=== PATIENT | female | born 1950 | race Caucasian/White ===

== ENCOUNTER 2018-01-11 11:02 | Inpatient (IN) | payer MEDICARE, BC, OTHER ==
[~2018-01-11] VITALS: Ht 149.9 cm; Wt 49.9 kg
[2018-01-11] MEDS ORDERED: 5 DAY TAPER OF LORAZEPAM -SERENITY PROTOCOL PO PRN (13:00)
[2018-01-11] MEDS ORDERED: IBUPROFEN 600 MG TABLET PO PRN (13:00)
[2018-01-11] MEDS ORDERED: 5 DAY TAPER BUPRENORPHINE -SERENITY PROTOCOL SL PRN (13:00)
[2018-01-11] MEDS ORDERED: DICYCLOMINE HCL 20 MG TABLET PO PRN (13:00)
[2018-01-11] MEDS ORDERED: diphenhydrAMINE 50 MG CAPSULE PO PRN (13:00)
[2018-01-11] MEDS ORDERED: ONDANSETRON ODT 4 MG TAB.RAPDIS SL PRN (13:00)
[2018-01-11] MEDS ORDERED: ONDANSETRON 4 MG/2 ML VIAL IM PRN (13:00)
[2018-01-11] MEDS ORDERED: MAGNESIUM HYDROXIDE 30 ML LIQUID UDC PO PRN (13:00)
[2018-01-11] MEDS ORDERED: LORAZEPAM 2 MG/1 ML VIAL IM PRN (13:00)
[2018-01-11] MEDS ORDERED: MAG HYDROX/AL HYDROX/SIMETH 30 ML LIQUID UDC PO PRN (13:00)
[2018-01-11] MEDS ORDERED: MIRALAX 17 GM POWD.PACK PO PRN (13:00)
[2018-01-11] MEDS ORDERED: LORAZEPAM 1 MG TABLET PO PRN ×2 (13:00)
[2018-01-11] MEDS ORDERED: THIAMINE HCL 200 MG/2 ML VIAL IM ONE (13:00)
[2018-01-11] MEDS ORDERED: LOPERAMIDE HCL 2 MG CAPSULE PO PRN ×2 (13:00)
[2018-01-11] MEDS ORDERED: BUPRENORPHINE HCL 2 MG TAB.SUBL SL PRN (13:00)
[2018-01-11 13:10] LABS: *AMPHETAMINE, URINE NEGATIVE (NEGATIVE); *BARBITURATE, URINE NEGATIVE (NEGATIVE); *CANNABINOID, URINE NEGATIVE (NEGATIVE); *COCCAINE, URINE NEGATIVE (NEGATIVE); *OPIATE, URINE POSITIVE (NEGATIVE); *PHENCYCLIDINE SCREEN,URINE NEGATIVE (NEGATIVE)
--- NOTE | 2018-01-11 13:15 | NUR ---
PRE ASSESSMENT NOTE Patient is 67 year old female admitted for medically supervised from ETOH/Opioids withdrawal. Patient is alert awake oriented x4. Patient is intoxicated able to make good eye contact and answer questions appropriately. Patient is anxious, agitated, restless flushed face. Patient stated PMH of insomnia, HTN, Degenerative disc disease but denies any history of seizure. VITAL SIGNS-B/P-142/72,HR-80, SPO2-98%,RR-17, PAIN -0/10, TEMP-98.4. Patient brought medications from home.
[2018-01-11 13:25] VITALS: BP 142/72
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
[2018-01-11 14:30] LABS: BASOPHILS % (AUTO) 0.9 % (0.0-2.0); EOSINOPHILS % (AUTO) 0.9 % (0.0-7.0); HEMATOCRIT 40.1 % (31.2-41.9); HEMOGLOBIN 13.5 g/dL (10.9-14.3); LYMPHOCYTES # (AUTO) 1.9 K/uL (20.0-40.0); LYMPHOCYTES % (AUTO) 39.2 % (20.5-51.5); MEAN CORPUSCULAR HGB CONC 34 g/dL (32.3-35.6); MEAN CORPUSCULAR VOLUME 100.9 fL (75.5-95.3); MONOCYTES # (AUTO) 0.4 K/uL (2.0-10.0); NEUTROPHILS # (AUTO) 2.4 K/uL (1.8-8.9); PLATELET COUNT (AUTO) 274 K/uL (179-408); RED BLOOD CELL COUNT(AUTO) 3.98 MIL/uL (3.63-4.92); WHITE BLOOD COUNT (AUTO) 4.8 K/uL (3.8-11.8)
[2018-01-11 14:53] LABS: ALANINE AMINOTRANSFERASE 68 U/L (14-59); ALKALINE PHOSPHATASE 108 U/L (50-136); AMYLASE 28 U/L (25-115); ASPARTATE AMINOTRANSFERASE 56 U/L (15-37); BILIRUBIN,TOTAL 0.9 mg/dL (0.2-1.0); CARBON DIOXIDE 26 mmol/L (21-32); CHLORIDE 100 mmol/L (98-107); CREATININE 0.6 mg/dL (0.6-1.3); GLUCOSE 112 mg/dL (74-106); LIPASE 68 U/L (73-393); MAGNESIUM 1.9 mg/dL (1.8-2.4); TOTAL PROTEIN, SERUM 7.1 g/dL (6.4-8.2); UREA NITROGEN, BLOOD 9 mg/dL (7-18)
[2018-01-11 15:00] LABS: ETHANOL < 3 MG/DL (0-0)
[2018-01-11] MEDS ORDERED: TRAZ-214 PO (15:09)
[2018-01-11] MEDS ORDERED: BENA20TA9 PO (15:09)
--- NOTE | 2018-01-11 15:09 | NUR ---
VITAMIN B1 ADMINISTERED Vitamine B1 administered on left deltoid injection site clean and dry no s/s of bleeding no swelling noted.
[2018-01-11 16:00] VITALS: BP 106/62
--- NOTE | 2018-01-11 17:46 | NUR ---
PRN Ativan Pt reports feeling anxious. She appears restless in bed with facial flushing and moist skin. She is taking deep breaths. CIWA score 9. PRN Ativan administered.
[2018-01-11] MEDS ORDERED: BIMA2.5D5 EACHEYE (18:00)
[2018-01-11] MEDS ORDERED: [UNRECOGNIZED DRUG - CODE] TP (18:00)
--- NOTE | 2018-01-11 18:11 | NUR ---
VTE SCORE VTE score 5 MD notified. SCD pumps in place. Educated patient on SCD pumps
--- NOTE | 2018-01-11 18:41 | NUR ---
ATIVAN REASSESSMENT CIWA score noted -7. Per patient Ativan 1mg PO was effective anxiety, tremors, restless decreased. Will cont to monitor.
--- NOTE | 2018-01-11 19:13 | NUR ---
START OF SHIFT Presented patient, 67 year old female, admitted today for Oxycodone and Alcohol withdrawal, and is on ordered PRN medications. 5 day Ativan taper and 3 day Subutex tapers scheduled for tomorrow, on 01/12/2018 at 0900, per MD's order. Upon endorsement, the patient is in her room, lying in the bed, and watching TV. The patient is alert, and oriented x4, cooperative, with clear, soft speech, and steady gait. During the day the patient experienced withdrawal symptoms such as anxiety, agitation, irritability, nervousness, tremors, sweating, restlessness, and fatigue. The most recent COWS=4 at 1600, CIWA=7 at 1841. PRN Ativan 1 mg PO administrated for CIWA=9 at 1745, and was effective, per day shift nurse report. VSWNL. SCD Pump in place as ordered for VTE=5. Encouraged increased oral fluids as tolerated. Encouraged to attending group activities. Safe and calm environment provided. All needs met. Safety measures: Call light within reach, bed locked in lowest position, padded bed rails up x2. The patient endorsed by day shift nurse. Will continue to monitor closely. endorsed by day shift nurse. Will continue to monitor closely. Addendum: 01/11/18 at 2309 by RAFAEL NGUYEN RN Presented patient, 67 year old female, admitted today for Alcohol and Oxycodone withdrawal,
--- NOTE | 2018-01-11 19:13 | NUR ---
END OF SHIFT NOTE Gave report to night nurse, 67 year old female admitted for ETOH/Opioids withdrawal. Patient currently not on any taper but PRN'S available for s/s of withdrawal. Skin intact warm and dry to touch. During shift patient presented with anxiety, agitation, restless,patient was PRN Ativan 1mg PO noted to be effective. Encourage Po fluids as tolerated for hydration, patient able to consumed 75%% of her meals. VTE score [address] All safety measures in place. Patient endorsed to night nurse in stable condition.
[2018-01-11 20:00] VITALS: BP 128/72
[2018-01-11] MEDS ORDERED: BENAZEPRIL HCL 20 MG TABLET PO SCH (20:00)
[2018-01-11] MEDS ORDERED: BIMATOPROST 0.01% OPHT DROP 2.5 ML BOTTLE EACHEYE SCH (20:00)
--- NOTE | 2018-01-11 20:00 | NUR ---
COWS/CIWA ASSESSMENT COWS=8, CIWA=9 at 2000. The patient presented with anxiety, agitation, nervousness, irritability, sweating, restlessness, tremors, fatigue, and yawning. Medications will be administrating, as ordered. Educated to use of Relaxation Techniques: deep breathing exercises, guided imagery, and visualization. Encouraged verbalization of feelings, fears, and anxiety. Emotional support and reassurance provided to patient. Safe and calm environment with minimized noises was provided. All needs met. Safety measures: Call light within reach, bed locked in lowest position, and padded bed rails up x2. Withdrawal symptoms will be monitoring closely.
[2018-01-11] MEDS ORDERED: BIMATOPROST 0.03% EACHEYE SCH (20:15)
[2018-01-11] MEDS: BENAZEPRIL HCL 10 MG TABLET PO SCH (20:18)
[2018-01-11] MEDS ORDERED: TRAZODONE 50 MG TABLET PO PRN (21:15)
--- NOTE | 2018-01-11 21:33 | NUR ---
PRN DESYREL (TRAZODONE 100 MG TABLET) 1 TABLET PO RE-ASSESSMENT Patient is sleeping. RR: 16. Respirations are even and unlabored. PRN Desyrel (Trazodone 100 mg tablet) 100 mg 1 tablet PO administrated for insomnia at 2133, as ordered, was effective. Safe and calm environment with minimized noises was provided. All needs met. Safety measures: Call light within reach, bed locked in the lowest position, and padded rails up x2. Will continue to monitor closely.
--- NOTE | 2018-01-11 21:33 | NUR ---
PRN DESYREL (TRAZODONE 100 MG TABLET) 1 TABLET PO ADMINISTRATION. Patient c/o insomnia, and asked aid. PRN Desyrel (Trazodone 100 mg tablet) 100 mg 1 tablet PO administrated for insomnia at 2133, as ordered. Patient tolerated well. Safe and calm environment with minimized noises was provided. All needs met. Safety measures: Call light within reach, bed locked in the lowest position, and padded rails up x2. Will continue to monitor closely.
[2018-01-12] VITALS (7 sets, daily range): BP systolic 116–168; BP diastolic 59–96
--- NOTE | 2018-01-12 | NUR ---
COWS/CIWA ASSESSMENT COWS=8, CIWA=8 at 0000. The patient experienced withdrawal symptoms such as anxiety, agitation, nervousness, irritability, sweating, restlessness, tremors, fatigue, and yawning. Safe and calm environment with minimized noises was provided. All needs met. Safety measures: Call light within reach, bed locked in lowest position, and padded bed rails up x2. Withdrawal symptoms will be monitoring closely.
--- NOTE | 2018-01-12 02:33 | NUR ---
PRN ATIVAN PO ADMINISTRATION The patient used call light and asked help with increased anxiety and restlessness. CIWA=16:The patient experienced moderate withdrawal symptoms such as anxiety, agitation, irritability, tremors, headache, flushed face, sweating, and restlessness. PRN Ativan 2 mg PO administrated for CIWA=16 at 0233. Safe and calm environment with minimized noises was provided. All needs met. Safety measures: Call light within reach, bed locked in the lowest position, and padded rails up x2. Withdrawal symptoms will be monitoring closely.
--- NOTE | 2018-01-12 02:33 | NUR ---
PRN BENADRYL 50 MG 1 CAPSULE PO ADMINISTRATION. PRN Benadryl 50 mg PO administrated for insomnia at 0233, as ordered. Patient tolerated well. Safe and calm environment with minimized noises was provided. All needs met. Safety measures: Call light within reach, bed locked in the lowest position, and padded rails up x2. Will continue to monitor closely.
--- NOTE | 2018-01-12 03:33 | NUR ---
PRN BENADRYL PO RE-ASSESSMENT Patient not sleeping. PRN Benadryl 50 mg PO administrated for insomnia at 0233, as ordered, was non-effective. Safe and calm environment with minimized noises was provided. All needs met. Safety measures: Call light within reach, bed locked in the lowest position, and padded rails up x2. Will continue to monitor closely.
--- NOTE | 2018-01-12 03:33 | NUR ---
ATIVAN RE-ASSESSMENT CIWA=12, patient reports, "My anxiety decreased, I just want to sleep". Explained that alcohol withdrawal increases anxiety and uneasiness. Educated to use of Relaxation Techniques: deep breathing exercises, guided imagery, and visualization. Encouraged verbalization of feelings, fears, and anxiety. Emotional support and reassurance provided to patient. Safe and calm environment with minimized noises was provided. All needs met. Safety measures: Call light within reach, bed locked in the lowest position, and padded rails up x2. Withdrawal symptoms will be monitoring closely. Addendum: 01/12/18 at 0455 by RAFAEL NGUYEN RN PRN Ativan 2 mg PO administrated for CIWA=16 at 0233 was effective.
--- NOTE | 2018-01-12 04:00 | NUR ---
COWS/CIWA ASSESSMENT COWS=9, CIWA=12 at 0400. The patient experienced withdrawal symptoms such as anxiety, agitation, irritability, nervousness, flushed face, insomnia, headache, tremors, sweating, restlessness, and fatigue. Safe and calm environment with minimized noises was provided. All needs met. Safety measures: Call light within reach, bed locked in lowest position, and padded bed rails up bilaterally. Will continue to monitor closely.
[2018-01-12] MEDS: CLONIDINE HCL 0.1 MG TABLET PO PRN ×2 (04:09→20:11)
--- NOTE | 2018-01-12 04:09 | NUR ---
PRN CLONIDINE 0.1 MG PO ADMINISTRATION. PRN Clonidine 0.1 mg PO administrated for BP:164/77 at 0409 with, as ordered. Patient tolerated well. Safe and calm environment with minimized noises was provided. All needs met. Safety measures: Call light within reach, bed locked in the lowest position, and padded rails up x2. Will continue to monitor closely.
--- NOTE | 2018-01-12 05:09 | NUR ---
PRN CLONIDINE PO RE-ASSESSMENT PRN Clonidine 0.1 mg PO administrated for BP:164/77 at 0409 was effective. BP decreased from 164/77 at 0409 to 150/74 at 0509. Safe and calm environment with minimized noises was provided. All needs met. Safety measures: Call light within reach, bed locked in the lowest position, and padded rails up x2. Will continue to monitor closely.
--- NOTE | 2018-01-12 07:13 | NUR ---
END OF SHIFT NOTE: Presented patient, 67 year old female, is alert, and oriented x4, cooperative, with clear, soft speech, and steady gait. Mood anxious, flat affect. She is on ordered PRN medications and 5 day Ativan taper and 3 day Subutex tapers scheduled for today at 0900, per MD's order. Initial COWS=8, CIWA=9 at 2000, COWS=8, CIWA=8 at 0000. The most recent COWS=9, CIWA=12 at 0400. During my shift the patient experienced withdrawal symptoms such as anxiety, agitation, irritability, nervousness, flushed face, insomnia, headache, tremors, sweating, restlessness, and fatigue. PRN Desyrel (Trazodone 100 mg tablet) 100 mg 1 tablet PO administrated for insomnia at 2133, and was effective. PRN Ativan 2 mg PO administrated for CIWA=16 at 0233, and was effective. PRN Benadryl 50 mg PO administrated for insomnia at 0233, and was non-effective. PRN Clonidine 0.1 mg PO administrated for BP: 164/77 at 0409, and was effective. Patient remains compliant with medications, treatment, and diet regimen. Patient slept for 7 hours, intake 500 ml, voided x4, stool x3. All needs met. Safety measures in the place by hospital policy: Call light within reach, bed in the lowest position and locked, padded rails up x2. Patient endorsed to day shift nurse in stable condition, report given.
--- NOTE | 2018-01-12 07:35 | NUR ---
START OF SHIFT Rcvd endorse from ongoing nurse, client is in room , she is a/o x 4, she presents with anxious, agitated mood, flat affect, disheveled, dark circles under her eyes, tremors, goosebump, sweats noted on upper lip and forehead, yawning, runny nose, teary, red eyes, and difficulty concentrating. Client states, "i am feeling like shit, my whole body hurts, I have a headache, the room is to bright and bothers me, I have been sweating, shaking, have no appetite, I'm nauseous, and I have diarrhea." Encourage client to increase PO fluid as tolerated to facilitate detox. encourage client to attend group therapy to learn skills to maintain sober. Last CIWA 9 @ 0400. PRN Trazodone 100mg PO, Benadryl 50mg PO for inability to sleep, Ativan 2mg PO for CIWA 16, Clonidine 0.1mg PO for 0.1mg for increased BP. Client slept 7hrs. Seizure precautions in place. Call light within reach.
[2018-01-12] MEDS: THIAMINE HCL 100 MG TABLET PO SCH (08:09)
[2018-01-12] MEDS: LORAZEPAM 1 MG TABLET PO SCH ×4 (08:09→20:11)
[2018-01-12] MEDS: BUPRENORPHINE HCL 2 MG TAB.SUBL SL SCH ×2 (08:09→20:12)
[2018-01-12] MEDS: FOLIC ACID 1 MG TABLET PO SCH (08:09)
[2018-01-12] MEDS: MULTIVITAMINS,THERAPEUTIC TABLET PO SCH (08:09)
--- NOTE | 2018-01-12 08:09 | NUR ---
CIWA 23 / COWS 19 Client is in bed, she is sitting at the edge of bed, she presents with anxious mood, restless, flat affect, flushed face, dilated pupils, avoidant gaze, clammy skin, goosebump, and difficulty concentrating, She reports nausea, headache, no appetite, sense of despair, and fatigue. PRN Ativan 2mg PO, Subutex 4mg SL administered. Call within reach.
[2018-01-12] MEDS: BENAZEPRIL HCL 10 MG TABLET PO SCH (08:10)
[2018-01-12] MEDS ORDERED: 3 DAY TAPER BUPRENORPHINE -SERENITY PROTOCOL SL PRN (09:00)
[2018-01-12] MEDS ORDERED: 5 DAY TAPER BUPRENORPHINE -SERENITY PROTOCOL SL PRN (09:00)
[2018-01-12] MEDS ORDERED: TUBERCULIN,PURIF.PROT.DERIV. 5 TU/0.1 ML TEST ID ONE (09:00)
[2018-01-12] MEDS ORDERED: 5 DAY TAPER OF LORAZEPAM -SERENITY PROTOCOL PO PRN (09:00)
[2018-01-12 12:08] LABS: HEPATITIS B SURFACE AG Negative (Negative)
--- NOTE | 2018-01-12 12:12 | NUR ---
WA 17 / COWS 19 Client is lying on the bed in a position, she is covered with several blankets, she reports feeling really hot one minute and then cold the next, she said, "This detox staff is very hard, I don't think I can do this." Client presents with anxious, agitated mood, flat affect, tremors, goosebump, sweats, yawning, runny nose, teary eyes, and difficulty concentrating. Ativan 2mg PO administered. Call light within reach.
--- NOTE | 2018-01-12 14:34 | NUR ---
CMP and magnesium labs scheduled for tomorrow.
--- NOTE | 2018-01-12 17:00 | NUR ---
CIWA 19 / COWS 17 Client continues to present with depressed, anxious mood, skin clammy, noted with goosebump, dilated pupils, flushed face, tremors, and difficulty concentrating she is sitting in her room in the dark, TV off, she states, "I feel so very sad and I have these pains on my body, that I can't focus on anything." Client reports nausea, ARELLANO, cold/chills, sweating, and poor appetite. Client denies any Suicidal, homicidal ideations. Schedule Ativan 2mg PO administered, she declines PRN pain medication at this time. Encourage client to verbalize feelings of despair. Call light within reach.
--- NOTE | 2018-01-12 19:21 | NUR ---
END OF SHIFT Endorse client to incoming nurse, client is in her room, a/o x 4, client continues to present with depressed, anxious mood, skin clammy, goosebump, dilated pupils, flushed face, tremors, difficulty concentrating, and fatigue. Client not compliant with group therapy due to above withdrawal symptoms. Adequate PO fluid intake 1000mL, void x 3, stool x 2. Client consumes 50% of meals. Last CIWA / 17 @ 1700. Seizure precautions in place. call light within reach.
--- NOTE | 2018-01-12 20:00 | NUR ---
Start of Shift Pt is a 67 year old female admitted for ETOH and Opiate withdrawal, placed on 5 day Ativan and 5 day Subutex taper. Upon assessment, pt presents in room in bed. Pt has poor eye contact and only looks up when assessment questions are being asked. Pt reports feeling anxious about being at [facility]. Pt states, I just dont know what to expect and thats making me feel anxious. Pt is noted with fine tremors, reports feeling chills, body aches, nasal stuffiness noted, stomach cramps, skin noted to be flushed/clammy with mild lightheadedness. COWS 13 & CIWA 16 - Medications due, safety measures in place, will continue to monitor.
--- NOTE | 2018-01-12 20:11 | NUR ---
PRN Clonidine Administration Pt with elevated BP 166/89. Clonidine 0.1mg PRN administered. Safety measures in place, will continue to monitor.
--- NOTE | 2018-01-12 21:20 | NUR ---
PRN Clonidine Reassessment Upon reassessment, BP 152/89 & Pulse 78. Safety measures in place, will continue to monitor.
[2018-01-12] MEDS: TRAZODONE 100 MG TABLET PO SCH (21:47)
[2018-01-12] MEDS ORDERED: CLONIDINE HCL 0.1 MG TABLET PO PRN (22:30)
[2018-01-13] VITALS (7 sets, daily range): BP systolic 98–178; BP diastolic 59–92
--- NOTE | 2018-01-13 | NUR ---
CIWA & COWS & PRN Hydralazine Administration CIWA 11 and COWS 7 pt presents with flushed skin, reports mild chills and body aches throughout body with tremors noted extending arms. Pt presents with elevated BP 178/92. Hydralazine 10mg x1 administered as ordered. Safety measures in place, will continue to monitor.
[2018-01-13] MEDS ORDERED: hydrALAZINE HCL 10 MG TABLET PO ONE (00:15)
--- NOTE | 2018-01-13 01:20 | NUR ---
PRN Hydralazine Reassessment BP decreased from 178/92 to 137/68. Medication effective.
--- NOTE | 2018-01-13 04:00 | NUR ---
CIWA & COWS Deferred CIWA & COWS deferred due to pt sleeping - to assess while pt is awake as ordered Pt is sleep, respirations even/unlabored. Safety measures in place, will continue to monitor.
--- NOTE | 2018-01-13 07:00 | NUR ---
End of Shift Pt is a 67 year old female admitted for ETOH and Opiate withdrawal, placed on 5 day Ativan and 5 day Subutex taper. During shift, pt mainly presented in room in bed. Pt had poor eye contact and only looked up when assessment questions were being asked. Pt reported feeling anxious about being at [facility]. Pt stated, I just dont know what to expect and thats making me feel anxious. Pt was noted with fine tremors, reported feeling chills, body aches, nasal stuffiness noted, stomach cramps, skin noted to be flushed/clammy with mild lightheadedness scheduled taper medications administered, latest COWS 7 and CIWA 16. Pt also presented with elevated BP 166/89 at 2011 in which Clonidine 0.1mg PRN was administered. BP 178/92 at 0000 in which Hydralazine 10mg x1 was administered effective BP 137/68 . Pt slept for 9 hours, intake of 500 ml and void x2. Safety measures in place, endorsed to day shift nurse.
[2018-01-13 07:23] LABS: BILIRUBIN,TOTAL 0.4 mg/dL (0.2-1.0); CREATININE 0.7 mg/dL (0.6-1.3); POTASSIUM 4.2 mmol/L (3.5-5.1); TOTAL PROTEIN, SERUM 6.5 g/dL (6.4-8.2)
--- NOTE | 2018-01-13 07:31 | NUR ---
BEGINNING OF SHIFT Patient endorsement report received from retail shift supervisor nurse, all pertinent information was discussed. Patient with admitting Dx: etoh/opiate withdrawal. Patient continues with ongoing 5 day Ativan and 5 day Subutex taper as ordered. Patient scheduled to begin day 2 of taper. As per retail shift supervisor patient received PRN: clonidine and hydralazine due to episodes of elevated blood pressure. Slept for 9 hours, with last COW score of: 7 and last CIWA score of: 11. Patient skin is intact. Received patient awake alert and oriented x4, educated regarding plan of care for the day and medication regimen with good verbal understanding. Will continue to monitor closely. Safety measures are in place. will continue to monitor closely.
[2018-01-13] MEDS: MULTIVITAMINS,THERAPEUTIC TABLET PO SCH (08:29)
[2018-01-13] MEDS: LORAZEPAM 1 MG TABLET PO SCH ×3 (08:29→21:24)
[2018-01-13] MEDS: THIAMINE HCL 100 MG TABLET PO SCH (08:29)
[2018-01-13] MEDS: FOLIC ACID 1 MG TABLET PO SCH (08:30)
[2018-01-13] MEDS: BUPRENORPHINE HCL 2 MG TAB.SUBL SL SCH ×3 (08:30→21:24)
[2018-01-13] MEDS: BENAZEPRIL HCL 10 MG TABLET PO SCH (08:31)
--- NOTE | 2018-01-13 09:00 | NUR ---
CIWA ASSESSMENT Patient awake, alert and oriented x4, in bed noted with anxious mood and depressed affect. Patient presented with the following s/sx of withdrawal: difficulty concentrating, generalized discomfort, tremors, anxiety, sweats, agitation, disoriented for date, elevated heart rate, chills, clammy skin, facial flushing. Patient with CIWA score of: 12, and COW: 11. Safety measure are in place. call light with in reach, continues on 5 day Ativan and 5 day Subutex taper.
--- NOTE | 2018-01-13 13:00 | NUR ---
CIWA/COW ASSESSMENT Patient continues to exhibit the following s/sx of withdrawal: difficulty concentrating, generalized discomfort, tremors, anxiety, sweats, agitation, disoriented for date, elevated heart rate, chills, clammy skin, facial flushing. Patient with CIWA score of: 12, and COW: 11. continues with ongoing Ativan and Subutex taper, will continue to monitor.
--- NOTE | 2018-01-13 16:55 | NUR ---
CIWA/COW ASSESSMENT Noted with the following symptoms: difficulty concentrating, generalized discomfort, tremors, anxiety, sweats, agitation, disoriented for date, elevated heart rate, chills, clammy skin, facial flushing. Patient with CIWA score of: 12, and COW: 11. will continue to monitor.
--- NOTE | 2018-01-13 18:44 | NUR ---
END OF SHIFT Patient under close observation, admitting Dx: etoh withdrawal. Patient completed 5 day Ativan taper, and continues under observation. Presenting the following s/sx of withdrawal: generalized discomfort, difficulty concentrating, anxiety and agitation, last CIWA: 5. Patient with episode of increase anxiety/agitation during shift, provided with calming reassurance, and non pharmacological interventions as needed. Patient administered Clonidine 0.1mg PO medication effective one hour post administration. Patient presented with anxious and depressed affect. Encouraged patient to practice self soothing techniques such as progressive muscle relaxation. Encouraged to attend group therapies/sessions to learn new coping skills to prevent relapse, noted attending and participanting. Denies SI/HI. Safety measures are in place. Call light with in reach, will continue to monitor closely. Addendum: 01/13/18 at 1845 by SHAWN BLAIR LVN WRONG PATIENT DOCUMENTATION, DISREGARD NOTE ABOVE.
--- NOTE | 2018-01-13 18:47 | NUR ---
END OF SHIFT Patient monitored closely during shift, continues on 5 day Ativan and 5 day Subutex taper as ordered, currently on day 2 of taper. Noted with anxious mood and depressed affect. Patient forgetful at times. Patient presented with the following s/sx of withdrawal: difficulty concentrating, generalized discomfort, tremors, anxiety, sweats, agitation, disoriented for date, elevated heart rate, chills, clammy skin, facial flushing. Patient with last CIWA score of: 12, and last COW: 11. Patient noted disheveled, unkempt, unwashed/uncombed hair, with poor regards to hygiene. Encouraged patient maintenance of personal area and self grooming. Encouraged patient to practice self soothing techniques such as progressive muscle relaxation. Encouraged to attend group therapies/sessions to learn new coping skills to prevent relapse, preferred to stay in room, noted isolative continued to encourage patient to participate throughout shift. Denies SI/HI. Safety measures are in place. Call light with in reach, will continue to monitor closely.
--- NOTE | 2018-01-13 20:00 | NUR ---
Start of Shift Patient appears anxious, melancholic and tries to avoid conversation. Patient observed to be flushed and with soft speech. When asked how her day went, patient verbalized: My day is good, actually better than yesterday but still its a long way to go. Patient noted with sweating on her face and isolative. Patient was educated with treatment, medications and plan of care. Fall, universal, seizure and safety precautions in place. Latest COWS= 10, CIWA=10. Call light within reach.
[2018-01-13] MEDS: TRAZODONE 100 MG TABLET PO SCH (21:24)
[2018-01-14] VITALS: BP 124/75
[2018-01-14 04:00] VITALS: BP 135/81
--- NOTE | 2018-01-14 07:23 | NUR ---
BEGINNING OF SHIFT Received patient awake alert and oriented x4, educated regarding plan of care for the day and medication regimen with good verbal understanding Patient endorsement report received from shift supervisor nurse, all pertinent information was discussed. Patient with admitting Dx: etoh/opiate withdrawal. Patient continues with ongoing 5 day Ativan and 5 day Subutex taper as ordered. Patient scheduled to begin day 3 of taper. As per shift supervisor patient received no PRN medications. Slept for 9 hours, with last COW score of: 9 and last CIWA score of: 9. Patient skin is intact. Per shift supervisor patient at times forgetful, Will continue to monitor closely. Safety measures are in place. will continue to monitor closely.
--- NOTE | 2018-01-14 07:24 | NUR ---
End of Shift Patient continues to be melancholic, isolative and tries to avoid conversation. Patient verbalized that she needs more sleep. Patient noted with sweating on her face and is increasingly anxious. Patient refused to take PRN medications offered for at this time. Fall, universal, seizure and safety precautions in place. Latest COWS=9, CIWA=9, slept for 9 hours. Endorsed to AM shift nurse for continuity of care.
[2018-01-14] MEDS ORDERED: BUPRENORPHINE HCL 2 MG TAB.SUBL SL SCH (09:00)
--- NOTE | 2018-01-14 09:00 | NUR ---
CIWA/COW ASSESSMENT Patient presented with the following s/sx of withdrawal: difficulty concentrating, generalized discomfort, tremors, chills, enlarged pupils, anxiety, sweats, agitation, difficulty sitting still, fidgety, clammy skin, facial flushing. Patient with CIWA score of: 11, and COW: 8. continues with ongoing Ativan and Subutex taper, medications were administered as ordered. will continue to monitor.
[2018-01-14 09:06] VITALS: BP 152/74
[2018-01-14] MEDS: FOLIC ACID 1 MG TABLET PO SCH (09:07)
[2018-01-14] MEDS: MULTIVITAMINS,THERAPEUTIC TABLET PO SCH (09:08)
[2018-01-14] MEDS: THIAMINE HCL 100 MG TABLET PO SCH (09:08)
[2018-01-14] MEDS: LORAZEPAM 1 MG TABLET PO SCH ×4 (09:08→20:58)
[2018-01-14] MEDS: BENAZEPRIL HCL 10 MG TABLET PO SCH (09:08)
--- NOTE | 2018-01-14 12:14 | NUR ---
CIWA/COW ASSESSMENT Patient continues exhibiting the following s/sx of withdrawal: difficulty concentrating, generalized discomfort, tremors, chills, enlarged pupils, anxiety, sweats, agitation, difficulty sitting still, fidgety, clammy skin, facial flushing. Patient with CIWA score of: 11, and COW: 8. continues under close observation.
[2018-01-14 12:20] VITALS: BP 129/76
[2018-01-14 16:51] VITALS: BP 100/69
--- NOTE | 2018-01-14 17:00 | NUR ---
CIWA/COW ASSESSMENT Continues to present with: difficulty concentrating, generalized discomfort, tremors, chills, enlarged pupils, anxiety, sweats, agitation, difficulty sitting still, fidgety, clammy skin, facial flushing. Patient with CIWA score of: 11, and COW: 8.
--- NOTE | 2018-01-14 18:59 | NUR ---
END OF SHIFT Patient presented with the following s/sx of withdrawal: Patient presented with the following s/sx of withdrawal: difficulty concentrating, generalized discomfort, tremors, chills, enlarged pupils, anxiety, sweats, agitation, difficulty sitting still, fidgety, clammy skin, facial flushing. Patient with last CIWA score of: 11, and last COW: 8. Continues under close observation, ongoing 5 day Ativan and 5 day Subutex taper as ordered, currently on day 3 of taper. Noted with anxious mood and depressed affect. Patient forgetful at times. Patient noted disheveled, unwashed/uncombed hair, with poor regards to hygiene. Encouraged patient maintenance of personal area and self grooming. Encouraged patient to practice self soothing techniques such as progressive muscle relaxation. Encouraged to attend group therapies/sessions to learn new coping skills to prevent relapse, preferred to stay in room, noted isolative continued to encourage patient to participate throughout shift. Denies SI/HI. Safety measures are in place. Call light with in reach, will continue to monitor closely. Patient endorsed to car shifter nurse, all pertinent information discussed. Addendum: 01/14/18 at 1907 by SHAWN BLAIR LVN clarification, patient currently with ongoing 3 day subutex not 5 day subutex, which she received last dose of subutex taper this morning, will continue under close observation.
--- NOTE | 2018-01-14 19:30 | NUR ---
Start of the Shift Note Received a 67 y/o female px, admitted for medically supervised withdrawal from ETOH and opiates. Px was placed on 5 day Ativan taper and 3 day Subutex taper, started on 01/12/2018. Px is tolerating them. Last reported COWS 8 and CIWA 11 by AM shift nurse. During the rounds at 1930, px is awake on bed in long sitting. Px appears anxious and depressed. Px is disheveled, and unkempt. Px has poor eye contact. Unfinished drinks noted on top of bed side table. Px stated that she is not being taking care of well here and she wanted to call her son. She said she is in a hospital for detox and will go for a 30 day program in a rehab. She also added "I came in Tuesday and today is Tuesday." Px complains of high anxiety. Mild bilateral hand tremors noted. Beddings fixed as requested. Bed on lowest position, side rails up 2x, and call light within reach. We'll continue to monitor.
[2018-01-14 20:00] VITALS: BP 138/85
--- NOTE | 2018-01-14 20:00 | NUR ---
COWS 8 and CIWA 12 Px appears anxious and depressed. Px is disheveled, and unkempt. Px has poor eye contact. Px complains of high anxiety. Mild bilateral hand tremors noted. WY= 88.
[2018-01-14] MEDS: TRAZODONE 100 MG TABLET PO SCH (20:58)
--- NOTE | 2018-01-14 21:58 | NUR ---
[facility] 12 reassessment Px appears anxious and depressed. Px has poor eye contact. Px still complains of high anxiety. Mild bilateral hand tremors noted.
[2018-01-15] VITALS: BP 126/79
--- NOTE | 2018-01-15 | NUR ---
COWS and CIWA deferred COWS and CIWA deferred due to the px is asleep. To assess if the px is awake per doctor's order. We'll continue to monitor.
[2018-01-15 04:00] VITALS: BP 125/81
--- NOTE | 2018-01-15 07:10 | NUR ---
End of the Shift Note During the shift, no PRN medications given. Px was observed to be anxious and depressed. Px oral intake is 1200 ml, voided 3x, No BM. Slept for 8 hours. Last COWS 8 and CIWA 12. At 0630, px is asleep on bed in fowlers position Bed on lowest position, side rails up 2x, and call light within reach. We'll continue to monitor. Px endorsed to AM shift nurse.
--- NOTE | 2018-01-15 07:30 | NUR ---
START OF SHIFT Endorse rcvd from ongoing nurse, client is in room, lying in bed, a/o x 4, she appears disheveled, flushed face, and difficulty concentrating. Client reports feeling jittery, sense of panic, restless, anxious, irritable, nauseous, poor appetite, restless legs, and fatigue. Encourage client to increase PO fluid to facilitate detox. Encourage client to attend group therapy to learn skills to maintain sober. Client completed 3 dy Subutex taper, 4th out of 5 day Ativan taper, last CIWA 8 @ 1999. Client slept 8 hrs. Seizure precautions in place. Call light within reach.
[2018-01-15 07:46] LABS: BILIRUBIN,TOTAL 0.4 mg/dL (0.2-1.0); CREATININE 0.6 mg/dL (0.6-1.3); POTASSIUM 4.4 mmol/L (3.5-5.1); TOTAL PROTEIN, SERUM 6.7 g/dL (6.4-8.2)
[2018-01-15 08:11] VITALS: BP 161/96
[2018-01-15] MEDS: BENAZEPRIL HCL 10 MG TABLET PO SCH (08:32)
[2018-01-15] MEDS: LORAZEPAM 1 MG TABLET PO SCH ×3 (08:32→20:54)
[2018-01-15] MEDS: THIAMINE HCL 100 MG TABLET PO SCH (08:32)
[2018-01-15] MEDS: MULTIVITAMINS,THERAPEUTIC TABLET PO SCH (08:32)
--- NOTE | 2018-01-15 08:32 | NUR ---
CIWA 13 / COWS 10 Client presents with anxious mood, flushed face, sense of panic, restless, anxious, irritable, nauseous, poor appetite, restless legs, fatigue, and difficulty concentrating. Ativan 1mg PO administered. Call light within reach
[2018-01-15] MEDS: FOLIC ACID 1 MG TABLET PO SCH (09:07)
--- NOTE | 2018-01-15 09:37 | NUR ---
CIWA / 13 Client appears disheveled, flushed face, jittery. She reports a sense of panic, restless, anxious, irritable, nauseous, poor appetite, restless legs, and fatigue. Scheduled Valium 5mg PO and Subutex 2mg SL administered. Call light within reach. Addendum: 01/15/18 at 1731 by JAZMÍN HUGHES RN Wrong client
[2018-01-15 12:55] VITALS: BP 136/76
--- NOTE | 2018-01-15 13:00 | NUR ---
CIWA 12/ COWS 9 Client presents with anxious mood, irritable, congested nose, clammy skin, restless legs, yawning and difficulty concentrating. Supportive non-pharmacology therapy and close monitoring. Call light within reach.
[2018-01-15] MEDS: ACETAMINOPHEN 325 MG TABLET PO PRN (15:41)
--- NOTE | 2018-01-15 15:41 | NUR ---
CIWA 14/ COWS 11 Client presents with anxiety, irritability, headache /, restlessness, nausea, tremors, restless legs, and fatigue. PRN Tylenol 650mg PO, Motrin 400mg PO administered. Call light within reach.
--- NOTE | 2018-01-15 16:41 | NUR ---
Reassess PRN Tylenol 650mg & Motrin 400mg, client reports relief from ARELLANO 0/10. Call light within reach.
[2018-01-15 16:53] VITALS: BP 116/84
--- NOTE | 2018-01-15 19:17 | NUR ---
END OF SHIFT Endorse client to incoming nurse, client is in her room, a/o x 4, client continues to present with depressed, anxious mood, skin clammy, enlarged pupils, flushed face, tremors, and difficulty concentrating. Client not compliant with group therapy. Adequate PO fluid intake 1800mL, void x 4, stool x 1. Client consumes 75% of meals. Last CIWA 14 / COWS 11 @ 1600. Seizure precautions in place. call light within reach.
--- NOTE | 2018-01-15 19:30 | NUR ---
START OF SHIFT Pt is a 67 y/o female admitted on 01/11/18 for ETOH and opiate withdrawal. Pt is on a 5 day Ativan taper that started on 01/12/18 and finished a 3 day Subutex taper, tolerating Ativan taper well. Last COWS 11 and CIWA 14 and PRN Motrin and Tylenol administered for headache during day shift. Upon assessment pt presents with anxiety, restlessness, agitation, elevated BP, elevated HR, difficulty falling asleep, hyperverbal speech, intermittent headache, disheveled appearance, and unkempt room. Medications due. Safety measures in place. Call light within reach. Will continue to monitor.
[2018-01-15 20:00] VITALS: BP 145/76
--- NOTE | 2018-01-15 20:00 | NUR ---
COWS 9 AND CIWA 12 Pt presents with anxiety, restlessness, agitation, elevated BP, elevated HR, difficulty falling asleep, hyperverbal speech, intermittent headache, disheveled appearance, and unkempt room. Pt going for smoke breaks.
[2018-01-15] MEDS: TRAZODONE 100 MG TABLET PO SCH (20:54)
--- NOTE | 2018-01-16 | NUR ---
COWS/CIWA DEFERRED AND VITALS REFUSED Pt laying in bed with eyes closed, COWS/CIWA deferred, to be assessed when pt is awake per orders. Vitals refused. Respirations even and unlabored. Safety measures in place. Call light within reach. Will continue to monitor.
--- NOTE | 2018-01-16 07:16 | NUR ---
END OF SHIFT Pt is a 67 y/o female admitted on 01/11/18 for ETOH and opiate withdrawal. Pt is on a 5 day Ativan taper that started on 01/12/18, tolerating well and finished a 3 day Subutex taper. Pt presented with anxiety, restlessness, agitation, elevated BP, elevated HR, difficulty falling asleep, hyperverbal speech, intermittent headache, disheveled appearance, and unkempt room. Scheduled medications administered, effective in S/S of withdrawal as verbalized by pt. Last COWS 9 and CIWA 12. Pt slept 8 hours. Intake 1296 ml, void x 3, stool x 1. Safety measures in place. Call light within reach. Pts needs have been met. Endorsed to day shift nurse.
--- NOTE | 2018-01-16 07:40 | NUR ---
START OF SHIFT NOTE Received repot from night nurse, 67 year old female admitted for ETOH withdrawal. Patient continues on Ativan taper tolerating well. Per endorsement patient did not receive any PRN last CIWA-12,COWS-9, slept for 8 hours. Received patient alert awake alert poor eye contact, anxious agitated, restless, unkempt room, bilateral hand tremors, denies any visual and auditory hallucinations. Skin intact warm and dry to touch. Educated patient regarding plan of the day and medication regimen group activities. Patient verbalized understanding. All safety measures in place. Call light within reach. Will cont to monitor.
[2018-01-16 08:00] VITALS: BP 131/62
--- NOTE | 2018-01-16 08:00 | NUR ---
FRANCOISE/JUSTIN ASSESSMENT JUSTIN-8,COWS-8. Patient presented with anxiety, agitation, restless, Yawning, bilateral hand tremors, chills. Patient continues with Ativan taper medications were given as ordered. Will cont to monitor. Addendum: 01/16/18 at 1146 by EARL BOSWELL LVN JUSTIN-10, FRANCOISE-8
[2018-01-16] MEDS: BENAZEPRIL HCL 10 MG TABLET PO SCH (08:28)
[2018-01-16] MEDS: MULTIVITAMINS,THERAPEUTIC TABLET PO SCH (08:28)
[2018-01-16] MEDS: THIAMINE HCL 100 MG TABLET PO SCH (08:28)
[2018-01-16] MEDS: LORAZEPAM 1 MG TABLET PO SCH ×2 (08:28→21:08)
[2018-01-16] MEDS: FOLIC ACID 1 MG TABLET PO SCH (08:28)
[2018-01-16 12:00] VITALS: BP 90/60
--- NOTE | 2018-01-16 12:00 | NUR ---
COWS/CIWA ASSESSMENT CIWA-9,COWS-9. Patient continues presented with anxiety, agitation, restless, sweats, bilateral hand tremors, chills. Will cont to monitor.
[2018-01-16 16:00] VITALS: BP 120/72
--- NOTE | 2018-01-16 16:00 | NUR ---
COWS/CIWA ASSESSMENT CIWA-10,COWS-7. Patient continues presented with anxiety, agitation, restless, sweats, bilateral hand tremors, headache, chills. Encourage patient to attend groups activities to learn new coping skills, patient verbalized understanding. Will cont to monitor.
--- NOTE | 2018-01-16 19:21 | NUR ---
END OF SHIFT NOTE Gave report to night nurse, Patient admitted for ETOH withdrawal and continues with Ativan taper tolerating well. Patient presented with anxiety, agitation, restless, light headed and patient was given scheduled medications and did not required and PRN'S medications. Patient did not attend any groups or activities. Patient isolated her self from peers. Encourage patient to attend groups activities to learn new coping skills. Patient able to consumed 100% of his meals, encourage patient PO fluids as tolerated for hydration. All safety measures in place, call light within reach. Patient endorsed to night nurse in stable condition.
--- NOTE | 2018-01-16 19:30 | NUR ---
Start of Shift Patient Received. Per endorsement, patient continues on a modified Ativan and Subutex tapers. Patient has been noted to be isolative to room and non compliant with group or social activities. No PRN Medications administered. All needs attended to promptly. Will continue to monitor.
[2018-01-16 20:34] VITALS: BP 107/73
[2018-01-16] MEDS: TRAZODONE 100 MG TABLET PO SCH (21:08)
[2018-01-17 00:11] VITALS: BP 104/69
[2018-01-17 04:19] VITALS: BP 99/53
--- NOTE | 2018-01-17 07:08 | NUR ---
End of Shift Patient is noted in bed with eyes closed. Breathing even and non labored. Patient has completed a modified Ativan taper and modified Subutex taper. No PRN medications administered. Last noted COWS 10 and CIWA 13. Patient noted to sleep a total of 7 hours. All needs attended to promptly. Will continue to monitor.
[2018-01-17 08:00] VITALS: BP 102/71
--- NOTE | 2018-01-17 08:05 | NUR ---
START OF SHIFT: Received Pt A/O x 4 sitting up in bed and eating breakfast. She presents with anxious mood and guarded affect. She reports restlessness,anxiety and fear about the future. Offered support. CIWA 9 COWS 7. She states she prefers to stay in room rather than attending groups and states she will attend groups when she moves on to treatment. Modified Ativan/Subutex taper completed. Will continue to monitor and offer support.
[2018-01-17] MEDS: FOLIC ACID 1 MG TABLET PO SCH (08:30)
[2018-01-17] MEDS: MULTIVITAMINS,THERAPEUTIC TABLET PO SCH (08:30)
[2018-01-17] MEDS: THIAMINE HCL 100 MG TABLET PO SCH (08:30)
[2018-01-17] MEDS: BENAZEPRIL HCL 10 MG TABLET PO SCH (08:31)
[2018-01-17 12:00] VITALS: BP 135/72
[2018-01-17] MEDS ORDERED: BENA10TA9 PO (13:54)
[2018-01-17] MEDS ORDERED: TRAZ150T75 PO (14:16)
[2018-01-17] MEDS: ACETAMINOPHEN 325 MG TABLET PO PRN (15:57)
[2018-01-17 16:00] VITALS: BP 126/69
--- NOTE | 2018-01-17 16:07 | NUR ---
Pt C/O H/A 6/10 on pain scale. PRN Tylenol 650 mg PO given as ordered.Will monitor effectiveness of PRN med.
--- NOTE | 2018-01-17 16:36 | NUR ---
Praised client for attending groups today and for talking individually about her anxiety over attneding RTC. Encouraged her to speak with her son and getting his support for what she needs to do.
--- NOTE | 2018-01-17 17:10 | NUR ---
Pt states the Tylenol was effective. She states H/A is now 2/10 on scale.
--- NOTE | 2018-01-17 18:47 | NUR ---
END OF SHIFT: Pt completed Ativan/Subutex taper. She reported some anxiety and mild body aches. Last CIWA 7 COWS 6. She also c/o h/a this afternoon and PRN Tylenol given and effective. She attended groups but very little interaction with peers in between. She is scheduled for discharge to RTC in am tomorrow. Will pass shift report to [facility] night nurse.
--- NOTE | 2018-01-17 19:40 | NUR ---
Start of Shift Patient Received. Per endorsement, patient has completed a modified Subutex taper and modified Ativan taper. She is set for discharge tomorrow morning 01/17/18 for continued treatment. Patient has been noted to be compliant with group and social activities. Last noted CIWA 7 and COWS 6. No PRN medications administered. All needs attended to promptly. Will continue plan of care as ordered.
[2018-01-17 20:43] VITALS: BP 141/81
[2018-01-17] MEDS: TRAZODONE 100 MG TABLET PO SCH (21:42)
[2018-01-18 00:04] VITALS: BP 109/72
[2018-01-18] MEDS ORDERED: HYDROXYZINE PAMOATE 25 MG CAPSULE PO ONE (02:00)
[2018-01-18] MEDS ORDERED: hydrOXYzine HCL 50 MG TABLET PO ONE (02:00)
--- NOTE | 2018-01-18 02:05 | NUR ---
PRN Medication Administration Patient is noted awake and verbalizing increased restlessness and anxiety causing inability of staying asleep. Relayed to MD with new order for Vistaril 50mg one time dose. noted and carried out. PRN Vistaril administered. Will continue to monitor.
--- NOTE | 2018-01-18 03:00 | NUR ---
PRN Medication Administration Patient is noted in bed with eyes closed. Breathing even and non labored. No restlessness or discomfort noted. Patient received one time dose of Vistaril with medication noted to be effective. Will continue to monitor. Addendum: 01/18/18 at 0711 by ANABELLE RICHARDSON LVN PRN Medication Reassessment
--- NOTE | 2018-01-18 04:22 | NUR ---
Vitals Refused Patient is noted in bed with eyes closed. Attempted to render vitals as ordered but patient noted to refuse. Respirations noted to be 16. CIWA not able to be completed as per order. Will continue to monitor.
--- NOTE | 2018-01-18 07:12 | NUR ---
End of Shift Patient is noted in bed with her eyes closed. Breathing even and non labored. Patient has completed a modified Subutex and modified Ativan taper. She is set for discharge today 01/18/18. She was compliant with group and social activities. She received onetime dose of Vistaril 50mg for increased anxiety with medications noted to be effective. Patient noted to sleep a total of 8 hours. Last noted CIWA 7 and COWS 8. All needs attended to promptly. Will endorse to continue plan of care as ordered.
[2018-01-18 08:00] VITALS: BP 116/65
[2018-01-18] MEDS: THIAMINE HCL 100 MG TABLET PO SCH (08:08)
[2018-01-18 08:09] VITALS: BP 116/75
[2018-01-18] MEDS: MULTIVITAMINS,THERAPEUTIC TABLET PO SCH (08:09)
[2018-01-18] MEDS: BENAZEPRIL HCL 10 MG TABLET PO SCH (08:09)
[2018-01-18] MEDS: FOLIC ACID 1 MG TABLET PO SCH (08:09)
--- NOTE | 2018-01-18 08:15 | NUR ---
START OF SHIFT: Received Pt A/O x 4 . She presents with anxious mood and guarded affect. She is packing and reports some anxiety about the going to RTC but does express enthusiasm toward recovery. CIWA 4 COWS 4. Will medicate and continue with discharge process. Modified Ativan/Subutex taper has been completed.
--- NOTE | 2018-01-18 09:40 | NUR ---
DISCHARGE: Pt is A/O X 4. She denies S/I and H/I. She expressed motivation toward recovery. Educated Pt on discharge instructions and medications. Belongings and medications returned. Pt was escorted to lobby by PHARMACY TECHNOLOGY INSTRUCTOR where she was transported to [facility] at 0933.
== END 2018-01-18 09:33 | disposition other institution (70) | DRG 895 ==
LOC: EDSEX 11:55 → SRC 11:55
PROVIDERS: ADMIT Family Medicine Addiction Medicine; ATTEND Family Medicine Addiction Medicine
PROC: HZ2ZZZZ Detoxification Services for Substance Abuse Treatment (ICD-10-PCS; principal; 2018-01-11)
PROC: HZ41ZZZ Group Counseling for Substance Abuse Treatment, Behavioral (ICD-10-PCS; 2018-01-12)
PROC: HZ31ZZZ Individual Counseling for Substance Abuse Treatment, Behavioral (ICD-10-PCS; 2018-01-12)
DX: F10.230 Alcohol dependence with withdrawal, uncomplicated (principal); F11.23 Opioid dependence with withdrawal; Y90.9 Presence of alcohol in blood, level not specified; G47.00 Insomnia, unspecified; F41.9 Anxiety disorder, unspecified; R74.0 Nonspecific elevation of levels of transaminase and lactic acid dehydrogenase [LDH]; Z88.2 Allergy status to sulfonamides; Z87.891 Personal history of nicotine dependence; Z96.641 Presence of right artificial hip joint; Z80.0 Family history of malignant neoplasm of digestive organs; Z82.3 Family history of stroke; Z81.1 Family history of alcohol abuse and dependence; M54.5 Low back pain; G89.29 Other chronic pain; M19.90 Unspecified osteoarthritis, unspecified site; I10 Essential (primary) hypertension; F32.9 Major depressive disorder, single episode, unspecified
CPT/HCPCS: 36415; 70030-TC; 80307; 80361; 83690; 83735; 85025; 86580; 86592; 86705; 86803; 87340; 87806; G0480; J3411; Q0163